=== PATIENT | male | born 1980 | race Caucasian/White ===

== ENCOUNTER 2016-10-23 20:02 | Emergency (ER) | payer OTHER ==
[2016-10-23 20:07] VITALS: RESP 16
--- NOTE | 2016-10-23 20:51 | EDPHY ---
H & P Time Seen by Provider: 10/23/16 20:41 HPI/ROS: CHIEF COMPLAINT: Skin avulsion left index finger HISTORY OF PRESENT ILLNESS: 36-year-old male presents with skin avulsion of left index finger. He was cutting vegetables in the kitchen when he accidentally cut his finger. Immediate onset of bleeding, which did not subside. Because of persistent bleeding, he came to the emergency department. Associated with minimal pain. Tetanus is up-to-date. No other injuries. ROS: No numbness, weakness, syncopal episode, other injury. Past Medical/Surgical History: Denies Smoking Status: Never smoked Physical Exam: Alert, pleasant Extremities: left index finger-less than 1 cm area of skin avulsion at the finger tip on the radial aspect; full range of motion at the PIP and PIP Neuro: Motor and sensory intact Vascular: Capillary refill brisk distally. Constitutional: Initial Vital Signs Temperature (C) 36.9 C 10/23/16 20:04 Heart Rate 71 10/23/16 20:04 Respiratory Rate 16 10/23/16 20:04 Blood Pressure 124/92 H 10/23/16 20:04 O2 Sat (%) 98 10/23/16 20:04 O2 Delivery Mode Room Air Allergies/Adverse Reactions: No Known Allergies Allergy (Unverified 10/23/16 20:04) Home Medications: Medication Instructions Recorded NK [No Known Home Meds] 10/23/16 Medical Decision Making ED Course/Re-evaluation: 1% lidocaine digital block. The wound was cleansed per protocol. Surgicel placed and the wound was bandaged. Instructions given. Departure - Departure Disposition: Home, Routine, Self-Care Clinical Impression: Avulsion of skin of finger Qualifiers: Encounter type: initial encounter Qualified Code(s): S61.209A - Unspecified open wound of unspecified finger without damage to nail, initial encounter Condition: Good Instructions: Skin Avulsion (ED) Additional Instructions: Cover the area with a nonadherent bandage. Referrals: NONE *PRIMARY CARE P,. [Primary Care Provider] - As per Instructions
[2016-10-23 21:24] VITALS: BP 120/77; PULSE 80; TEMP 97.9; O2SAT 93
== END 2016-10-23 21:23 | disposition home or self-care (01) ==
PROC: 3E0T3CZ (ICD-10-PCS; principal; 2016-10-23)
DX: S61.201A Unspecified open wound of left index finger without damage to nail, initial encounter (principal); W27.4XXA Contact with kitchen utensil, initial encounter; Y92.000 Kitchen of unspecified non-institutional (private) residence as the place of occurrence of the external cause; Y99.8 Other external cause status; Y93.89 Activity, other specified